=== PATIENT | male | born 1995 | race Caucasian/White ===

== ENCOUNTER 2017-09-21 20:16 | Emergency (ER) | payer BC ==
[2017-09-21] MEDS ORDERED: IBUPROFEN 600 MG TAB PO ONE (20:26)
[2017-09-21] MEDS ORDERED: ACETAMINOPHEN 500 MG TAB PO ONE (20:26)
[2017-09-21] MEDS ORDERED: NS 1,000 ML IV ONE (21:45)
[2017-09-21] MEDS ORDERED: METOCLOPRAMIDE 10 MG/2 ML VIAL IVP ONE (21:45)
[2017-09-21 22:00] VITALS: RESP 16
--- NOTE | 2017-09-21 22:23 | EDPHY ---
General Narrative: CHIEF COMPLAINT: Headache, malaise, myalgia HISTORY OF PRESENT ILLNESS: Patient complains of headache and myalgia. This started last night, approximately 24 hours ago. Mild headache at the top of his head. Gradual onset. Waxes and wanes. Seems to go up when his temperature goes up, as he has had fever with a T-max of a 102. No neck pain or stiffness of any kind. No numbness or tingling. No weakness. No chest pain. No cough. No shortness of breath. No sore throat. No runny nose. Does have generalized malaise and myalgia. He attempted no medications prior to arrival. Expresses concern as he practices due ann hernandes, and He was practicing choke maneuvers yesterday. There was no actual choke-out or loss of consciousness. No blunt trauma to the neck. No chiropractic manipulation. No visual disturbance. No other associated complaints or modifying factors. REVIEW OF SYSTEMS: Ten systems reviewed and are negative unless otherwise noted in the HPI PCP: None locally SPECIALISTS: None PAST MEDICAL HISTORY: None PAST SURGICAL HISTORY: None SOCIAL HISTORY: Nonsmoker. Occasional alcohol. No drug use. Originally from [place]. Sophomore at [employer]. FAMILY HISTORY: Noncontributory EXAMINATION General Appearance: Alert, no distress Head: normocephalic, atraumatic Eyes: Pupils equal and round, no conjunctival pallor or injection ENT, Mouth: Mucous membranes moist. Uvula midline. Airway patent. Neck: Normal inspection, supple, non-tender. Painless range of motion all planes. No nuchal rigidity or meningismus. Respiratory: Lungs are clear to auscultation. No wheeze, rhonchi or crackles Cardiovascular: Regular rate and rhythm. No murmur. No carotid bruits. Gastrointestinal: Abdomen is soft and nontender Back: non-tender, no bony abnormalities Neurological: GCS 15. A&O, nonfocal, normal gait. Strength is symmetric in all 4 limbs. No pronator drift. No dysmetria. Skin: Warm and dry, no rash. No petechiae or purpura Extremities: Nontender, no pedal edema Psychiatric: Mood and affect normal DIFFERENTIAL DIAGNOSES: Including but not limited to influenza, carotid dissection, meningitis, migraine headache, viral illness, subarachnoid hemorrhage MDM: 9:45 p.m. Headache and malaise with appearance suggest influenza. He has no meningismus and complains of no neck pain or stiffness. Vital signs are stable with a fever 102 at time of arrival. He is feeling better after the anti- inflammatories administered. Normal examination otherwise. Influenza pending. 10:25 p.m. Notified the patient had abnormal reaction to his medication. I have re- evaluated the patient. He likely has an intolerance to Reglan. He is not dystonia. He is feeling better given that the Benadryl was administered with this. He is feeling much better. Headache is minimal. No neck pain. Vital signs stable. Laboratory studies pending. 11:15 p.m. Laboratory studies are negative for any leukocytosis. He continues to feel well at this time. Likely viral etiology. I do not feel that he has meningitis or carotid dissection by history examination. I discussed this with the patient and his father by telephone with the patient's permission. Discharged home with symptomatic medications. ED precautions discussed. Follow up with primary care physician. He is comfortable this plan. Discharged in stable condition. - History Smoking Status: Never smoked - Objective Vital Signs: Initial Vital Signs Temperature (C) 102.0 F H 09/21/17 20:20 Heart Rate 85 09/21/17 20:20 Respiratory Rate 18 09/21/17 20:20 Blood Pressure 152/81 H 09/21/17 20:20 O2 Sat (%) 95 09/21/17 20:20 O2 Delivery Mode Room Air Allergies/Adverse Reactions: No Known Allergies Allergy (Unverified 09/21/17 20:23) Home Medications: Medication Instructions Recorded Acetaminophen/Codeine 300/30Mg 1 each PO Q6 PRN #11 tab 09/21/17 [Tylenol #3 (*)] Laboratory Results: Laboratory Results 09/21/17 22:00 09/21/17 22:00 09/21/17 09/21/17 09/21/17 22:00 22:00 20:25 WBC 8.07 10^3/uL 10^3/uL (3.80-9.50) RBC Pending Hgb 17.5 g/dL g/dL (13.7-17.5) Hct 46.0 % % (40.0-51.0) MCV Pending MCH Pending MCHC Pending RDW Pending Plt Count 269 10^3/uL 10^3/uL (150-400) MPV Pending Neut % (Auto) Pending Lymph % (Auto) Pending Mcpherson % (Auto) Pending Eos % (Auto) Pending Baso % (Auto) Pending Nucleat RBC Rel Count Pending Absolute Neuts (auto) Pending Absolute Lymphs (auto) Pending Absolute Monos (auto) Pending Absolute Eos (auto) Pending Absolute Basos (auto) Pending Absolute Nucleated RBC Pending Immature Gran % Pending Immature Gran # Pending Platelet Estimate Pending Sodium 139 mEq/L mEq/L (134-144) Potassium 4.0 mEq/L mEq/L (3.5-5.2) Chloride 103 mEq/L mEq/L (97-110) Carbon Dioxide 25 mEq/l mEq/l (22-31) Anion Gap 11 mEq/L mEq/L (8-16) BUN 16 mg/dL mg/dL (7-23) Creatinine 1.2 mg/dL mg/dL (0.7-1.3) Estimated GFR > 60 Glucose 95 mg/dL mg/dL (70-100) Calcium 9.1 mg/dL mg/dL (8.5-10.4) Nasal Influenza A PCR NEGATIVE FOR FLU A (NEGATIVE) Nasal Influenza B PCR NEGATIVE FOR FLU B (NEGATIVE) Influenza A,B Rapid 09/21/17 20:25 WBC RBC Hgb Hct MCV MCH MCHC RDW Plt Count MPV Neut % (Auto) Lymph % (Auto) Mcpherson % (Auto) Eos % (Auto) Baso % (Auto) Nucleat RBC Rel Count Absolute Neuts (auto) Absolute Lymphs (auto) Absolute Monos (auto) Absolute Eos (auto) Absolute Basos (auto) Absolute Nucleated RBC Immature Gran % Immature Gran # Platelet Estimate Sodium Potassium Chloride Carbon Dioxide Anion Gap BUN Creatinine Estimated GFR Glucose Calcium Nasal Influenza A PCR Nasal Influenza B PCR Influenza A,B Rapid Cancelled Medications Given: Discontinued Medications Acetaminophen (Tylenol) 1,000 mg PO EDNOW ONE Stop: 09/21/17 20:27 Last Admin: 09/21/17 20:30 Dose: 1,000 mg Diphenhydramine HCl (Benadryl Injection) 25 mg IVP EDNOW ONE Stop: 09/21/17 21:46 Last Admin: 09/21/17 21:59 Dose: 25 mg Sodium Chloride (Ns) 1,000 mls @ 0 mls/hr IV EDNOW ONE; Wide Open PRN Reason: Protocol Stop: 09/21/17 21:46 Last Admin: 09/21/17 21:59 Dose: 1,000 mls Ibuprofen (Motrin) 600 mg PO EDNOW ONE Stop: 09/21/17 20:27 Last Admin: 09/21/17 20:31 Dose: 600 mg Metoclopramide HCl (Reglan Injection) 10 mg IVP EDNOW ONE Stop: 09/21/17 21:46 Last Admin: 09/21/17 21:59 Dose: 10 mg Departure - Departure Disposition: Home, Routine, Self-Care Clinical Impression: Headache Qualifiers: Headache type: unspecified Headache chronicity pattern: acute headache Intractability: not intractable Qualified Code(s): R51 - Headache Fever Qualifiers: Fever type: unspecified Qualified Code(s): R50.9 - Fever, unspecified Condition: Good Instructions: Fever in Adults (ED), Acute Headache (ED) Additional Instructions: 1. Increase fluid intake 2. Ibuprofen 600-800 mg every 8 hours as needed 3. Tylenol 3 with codeine as needed as prescribed 4. Return to emergency department for any neck pain or stiffness, sudden change in headache, intractable headache Referrals: NAVARRO SCHULTZ [Other] - As per Instructions Stand Alone Forms: School Excuse Prescriptions: Acetaminophen/Codeine 300/30Mg [Tylenol #3 (*)] 1 each PO Q6 PRN #11 tab PRN Reason: Pain, Mild
[2017-09-21 22:35] LABS: ANION GAP 11 mEq/L (8-16); CALCIUM 9.1 mg/dL (8.5-10.4); CARBON DIOXIDE 25 mEq/l (22-31); CHLORIDE 103 mEq/L (97-110); CREATININE 1.2 mg/dL (0.7-1.3); GLOMERULAR FILTRATION RATE > 60; GLUCOSE 95 mg/dL (70-100); SODIUM 139 mEq/L (134-144)
[2017-09-21 22:41] LABS: ADD MORPH? YES; ADD SCAN? YES; FRAGMENT RBC FLAG 0 (0-99); HEMOGLOBIN 17.5 g/dL (13.7-17.5); LEFT SHIFT FLG 10 (0-99); MEAN CELL HEMOGLOBIN 32.7 pg (27.9-34.1); MEAN PLATELET VOLUME 9.9 fL (8.7-11.7); PLATELET CLUMPS FLAG 0 (0-99); PLATELET COUNT 269 10^3/uL (150-400); RED BLOOD CELL COUNT 5.35 10^6/uL (4.40-6.38); RED CELL DISTRIBUTION WIDTH 11.8 % (11.5-15.2)
[2017-09-21 22:45] LABS: ATYPICAL LYMPHOCYTE FLAG 100 (0-99); LIPEMIA HEMOLYSIS FLAG 100 (0-99)
[2017-09-21 23:44] VITALS: BP 134/82; PULSE 73; TEMP 97.7; O2SAT 95
[2017-09-21 23:45] LABS: ADD DIFF? YES; SCAN POSITIVE
[2017-09-21 23:49] LABS: PLATELET ESTIMATE ADEQUATE (ADEQ)
== END 2017-09-21 23:43 | disposition home or self-care (01) ==
DX: R51 Headache (principal); R50.9 Fever, unspecified; E86.9 Volume depletion, unspecified
CPT/HCPCS: 96374; J1200; J2765